=== PATIENT | male | born 1985 | race African-American/Black ===

== ENCOUNTER 2025-09-25 16:58 | Emergency (ER) | payer OTHER ==
[~2025-09-25 16:58] MED LIST: Iopamidol 370 76% 100 ML VIAL ONE
[2025-09-25] MEDS ORDERED: Nitroglycerin 0.4 MG TAB 1 EACH ONE ×2 (17:39→17:59)
[2025-09-25 17:55] LABS: Hematocrit 55.2 % (42.0-52.0); Hemoglobin 17.6 g/dL (14.0-18.0); MDiff Complete? YES; Mean Corpuscular Hemoglobin 29.7 pg (27.0-31.0); Mean Corpuscular Volume 93.3 fl (78.0-98.0); Platelet Adequacy Comment Appears Adequate; Platelet Count 294 10x3/uL (130-400); Red Blood Cell (RBC) Count 5.91 mill/uL (4.70-6.10); White Blood Cell (WBC) Count 4.4 10x3/uL (4.8-10.8)
[2025-09-25 17:57] LABS: ALT (SGPT) 34 U/L (Less than 45); AST (SGOT) 28 U/L (11-34); Albumin 4.2 g/dL (3.1-4.5); Alkaline Phosphatase 62 U/L (40-110); Anion Gap 15 mmol/L (10-20); BUN (Urea Nitrogen) 14 mg/dL (8.9-20.6); Bilirubin, Total 1.0 mg/dL (0.3-1.2); Calc. Creatinine Clearance 0 mL/min (70-130); Calcium 9.3 mg/dL (7.8-10.44); Carbon Dioxide 23 mmol/L (22-29); Chloride 108 mmol/L (98-107); Globulin 3.2 g/dL (2.4-3.5); Glucose 89 mg/dL (70-105); Lipase 30 U/L (8-78); Potassium 4.2 mmol/L (3.5-5.1); Sodium 142 mmol/L (136-145)
[2025-09-25 17:57] LABS: Magnesium 2.2 mg/dL (1.6-2.6)
[2025-09-25 18:03] LABS: Troponin I Less than 0.010 ng/mL (< 0.028)
[2025-09-25] MEDS ORDERED: Aspirin Chewable 81 MG TAB ONE (19:28)
== END 2025-09-25 19:32 ==
LOC: MADERS 16:58
DX: R07.2 Precordial pain (principal); R29.701 NIHSS score 1; F17.210 Nicotine dependence, cigarettes, uncomplicated
CPT/HCPCS: 70450; 71046; 71275; 74174; 80053; 83690; 83735; 84484; 85025; 93005; 94760; 96374; J2270; Q9967